=== PATIENT | female | born 1975 | race Caucasian/White ===

== ENCOUNTER 2018-05-26 16:50 | Emergency (ER) | payer BC ==
[2018-05-26 17:03] VITALS: O2SAT 99
[2018-05-26 17:49] LABS: BASO # 0.1 K/uL (0.0-0.2); BASO % 1.2 % (0.0-2.0); EOS # 0.2 K/uL (0.0-0.7); EOS % 2.2 % (0.0-4.0); HEMOGLOBIN 13.5 g/dL (12.0-16.0); LYMPH # 1.6 K/uL (1.0-4.3); LYMPH % 19.1 % (20.0-40.0); MEAN CELL VOLUME 92.9 fl (81.0-99.0); MEAN CORPUSCULAR HEMOGLOBIN 31.3 pg (27.0-31.0); MEAN CORPUSCULAR HGB CONC 33.7 g/dL (33.0-37.0); MEAN PLATELET VOLUME 6.5 fl (7.2-11.7); MONO # 0.6 K/uL (0.0-0.8); MONO % 6.7 % (0.0-10.0); NEUT # 5.9 K/uL (1.8-7.0); NEUT % 70.8 % (50.0-75.0); NRBC % 0.1 % (0.0-0.0); RBC 4.3 Mil/uL (3.80-5.20); RED CELL DISTRIBUTION WIDTH 12.7 % (11.5-14.5); WHITE BLOOD COUNT 8.4 K/uL (4.8-10.8)
--- NOTE | 2018-05-26 17:54 | ED PDOC ---
HPI: General Adult Time Seen by Provider: 05/26/18 17:12 Chief Complaint (Nursing): Abdominal Pain History Per: Patient Additional Complaint(s): Pt. states for the past 2 weeks she's had a progressively worsening cough without sputum. Reports she was initially being treated with Amoxicillin by her PMD but then she developed an allergic reaction to the Amoxicillin therefore it was discontinued. Rash has resolved. Last night cough became worse and she developed R sided flank pain radiating to her RUQ. Reports RUQ pain is worse with coughing. Denies hemoptysis, fever, leg pain or swelling, N/V, fever, chills, hormonal therapy, recent prolonged limb immobilization. Past Medical History Reviewed: Historical Data, Nursing Documentation, Vital Signs Vital Signs: Last Vital Signs Temp 98.1 F 05/26/18 17:00 Pulse 78 05/26/18 17:00 Resp 18 05/26/18 17:00 BP 137/88 05/26/18 17:00 Pulse Ox 99 05/26/18 17:00 - Medical History PMH: Denies: Deep Vein Thrombosis, Pulmonary Embolism - Surgical History Surgical History: Appendectomy (at 8 y/o) - Family History Family History: States: No Known Family Hx - Home Medications Home Medications: Ambulatory Orders Medication Instructions Recorded Azithromycin [Zithromax] 250 mg PO DAILY #6 tab 05/26/18 RX: Naproxen [Naprosyn] 500 mg PO BID PRN #10 tab 05/26/18 RX: Promethazine DM [Phenergan DM 5 ml PO Q8 PRN #120 ml 05/26/18 Syrup] - Allergies Allergies/Adverse Reactions: Allergies Allergy/AdvReac Type Severity Reaction Status Date / Time amoxicillin Allergy RASH Verified 05/26/18 17:00 Review of Systems ROS Statement: Except As Marked, All Systems Reviewed And Found Negative Respiratory: Positive for: Cough. Negative for: Shortness of Breath Gastrointestinal: Positive for: Abdominal Pain Musculoskeletal: Positive for: Back Pain Physical Exam - Physical Exam Appears: Positive for: Well, Non-toxic, No Acute Distress Skin: Positive for: Normal Color, Warm. Negative for: Rash Eye Exam: Positive for: Normal appearance ENT: Positive for: Normal ENT Inspection Cardiovascular/Chest: Positive for: Regular Rate, Rhythm, Chest Non Tender (R sided axillary chest wall tenderness) Respiratory: Positive for: Normal Breath Sounds. Negative for: Respiratory Dis tress Gastrointestinal/Abdominal: Positive for: Soft, Tenderness (mild RUQ tenderness; negative Zuniga's sign). Negative for: Distended, Guarding Back: Negative for: L CVA Tenderness, R CVA Tenderness Neurologic/Psych: Positive for: Alert, Oriented (x3) - Laboratory Results Result Diagrams: 05/26/18 17:30 05/26/18 17:30 - ECG ECG: Positive for: Interpreted By Me ECG Rhythm: Positive for: Sinus Rhythm. Negative for: ST/T Changes Rate: 79 O2 Sat by Pulse Oximetry: 99 - Radiology X-Ray: Interpreted by Me (CXR) X-Ray Interpretation: No Acute Disease - Progress ED Course And Treament: Labs, toradol 30mg IVP, CXR, EKG, RUQ US ordered. On re-evaluation, pt. reports good analgesia. States she is feeling much better. Informed of all results. Informed that according to Well's and PERC scoring she is very low risk for PE but risk still exists. Pt. educated on signs and symptoms of PE. Agrees that testing is not required at this time. All questions answered. Pt. agrees with plan and care. Advised to f/u with PMD for further evaluation but is to return to ED immediately if symptoms worsen. Pt. verbalized correct understanding of plan and care. Disposition - Clinical Impression Clinical Impression: Chest wall pain, Cough - Patient ED Disposition Is Patient to be Admitted: No - Disposition Referrals: Jennifer Rivas [Outside] Disposition: Routine/Home Disposition Time: 19:07 Condition: GOOD Additional Instructions: FOLLOW UP WITH PMD FOR FURTHER EVALUATION RETURN TO ED IMMEDIATELY IF SYMPTOMS WORSEN DEDRA SANCHEZ, thank you for letting us take care of you today. Your provider was Bora Amaya III, DO and you were treated for ABD PAIN. The emergency medical care you received today was directed at your acute symptoms. If you were prescribed any medication, please fill it and take as directed. It may take several days for your symptoms to resolve. Return to the Emergency Department if your symptoms worsen, do not improve, or if you have any other problems. Please contact your doctor or call one of the physicians/clinics you have been referred to that are listed on the Patient Visit Information form that is included in your discharge packet. Bring any paperwork you were given at discharge with you along with any medications you are taking to your follow up visit. Our treatment cannot replace ongoing medical care by a primary care provider outside of the emergency department. Thank you for allowing the [facility] team to be part of your care today. If you had an X-Ray or CT scan: A Radiologist will review the ED reading if any change in treatment is needed we will contact you. If you had a blood, urine, or wound culture: It will take several days for the r esults, if any change in treatment is needed we will contact you. If you had an STI test: It will take 48 hours for the results. Please call after 1 week if you have not heard back. Prescriptions: Azithromycin [Zithromax] 250 mg PO DAILY #6 tab RX: Naproxen [Naprosyn] 500 mg PO BID PRN #10 tab PRN Reason: Pain RX: Promethazine DM [Phenergan DM Syrup] 5 ml PO Q8 PRN #120 ml PRN Reason: Cough Instructions: Cough in Adults, Chest Pain That Is Not Caused by the Heart (DC) Forms: [employer] (Serbian) Wells Criteria for PE - Wells Criteria for Pulmonary Embolism Clinical Signs and Symptoms of DVT: No P.E is #1 Diagnosis, or Equally Likely: No Heart Rate >100: No Immobilization at least 3 days;Surgery previous 4 weeks: No Previous, objectively diagnosed PE or DVT: No Hemoptysis: No Malignancy w/treatment within 6 months, or palliative: No Total Score: 0
[2018-05-26 18:10] LABS: ALB/GLOB RATIO 1.3 (1.0-2.1); ALBUMIN 4.4 g/dL (3.5-5.0); ALT/SGPT 89 U/L (9-52); AST/SGOT 55 U/L (14-36); BLOOD UREA NITROGEN 13 mg/dl (7-17); CALCIUM 9.3 mg/dL (8.4-10.2); GFR NON-AFRICAN AMERICAN > 60; LIPASE 121 U/L (23-300)
--- NOTE | 2018-05-26 18:16 | US ---
Date of service: 05/26/2018 HISTORY: RUQ pain COMPARISON: None. TECHNIQUE: Sonographic evaluation of the right upper quadrant of the abdomen. FINDINGS: LIVER: Measures 12.1 cm in length. Normal echogenicity of the liver parenchyma. No mass. No intrahepatic bile duct dilatation. GALLBLADDER: Unremarkable. Contracted. No gallstones. COMMON BILE DUCT: Measures 3 mm. No stones. No dilatation. PANCREAS: Limited evaluation due to overlying bowel gas. RIGHT KIDNEY: Measures 9.3 x 4.7 x 4.6 cm in length. Normal echogenicity. No calculus, mass, or hydronephrosis. AORTA: No aneurysmal dilatation. IVC: Unremarkable. OTHER FINDINGS: None . IMPRESSION: Unremarkable right upper quadrant ultrasound.
--- NOTE | 2018-05-26 18:19 | RAD ---
Date of service: 05/26/2018 HISTORY: cough COMPARISON: No prior. TECHNIQUE: Chest PA and lateral FINDINGS: LUNGS: No active pulmonary disease. PLEURA: No significant pleural effusion identified. No pneumothorax apparent. CARDIOVASCULAR: No aortic atherosclerotic calcification present. Normal cardiac size. No pulmonary vascular congestion. OSSEOUS STRUCTURES: No significant abnormalities. VISUALIZED UPPER ABDOMEN: Normal. OTHER FINDINGS: None. IMPRESSION: No active disease.
[2018-05-26 18:39] LABS: SQUAMOUS EPITHIAL 22 /hpf (0-5); URINE BILIRUBIN NEGATIVE (NEGATIVE); URINE BLOOD NEGATIVE (NEGATIVE); URINE CLARITY CLOUDY (Clear); URINE COLOR YELLOW (YELLOW); URINE GLUCOSE (UA) 50 mg/dL (NEGATIVE); URINE LEUKOCYTE ESTERASE NEG Leu/uL (Negative); URINE PROTEIN 30 mg/dL (NEGATIVE); URINE UROBILINOGEN 0.2-1.0 mg/dL (0.2-1.0)
[2018-05-26 19:16] VITALS: BP 108/81; RESP 16; TEMP 98.4
--- NOTE | 2018-05-27 07:20 | CARD ---
APPROVED REPORT Date of service: 05/26/2018 EKG Measurement Heart [id number] <Conclusion> Normal sinus rhythm Normal ECG
[2018-05-28 10:25] VITALS: PULSE 79
== END 2018-05-26 19:18 | disposition home or self-care (01) ==
LOC: H.ER 16:50
DX: R05 Cough (principal); R07.89 Other chest pain
CPT/HCPCS: 71046; 76705; 80053; 81003; 81025; 83690; 85025; 93005; 96374; 99285; J1885